=== PATIENT | male | born 1995 | race Caucasian/White ===

== ENCOUNTER 2018-03-24 03:15 | Emergency (ER) | payer MEDICAID ==
[~2018-03-24] VITALS: Ht 165.1 cm; Wt 68.0 kg
--- NOTE | 2018-03-24 03:27 | NUR ---
PT TO ER BED 12. BIB SELF; "IM NOT FEELING WELL, IM HEARING VOICES". PT PLACED ON STEREOTYPER APPRENTICE. VSS/RESP EVEN UNLABORED/NAD NOTED/SKIN WARM AND DRY/AFEBRILE/DENIES N-V-D/AOX4. AWAITNG MD KOCH.
--- NOTE | 2018-03-24 03:30 | NUR ---
URINE SPECIMEN OBTAINED AND SENT TO THE LAB.
--- NOTE | 2018-03-24 03:40 | NUR ---
LAB AT BEDSIDE FOR DRAW.
[2018-03-24 03:51] LABS: BASOPHILS % (AUTO) 0.3 % (0.0-2.0); HEMATOCRIT 46 % (39-51); HEMOGLOBIN 14.6 g/dL (13.5-17.5); LYMPHOCYTES # (AUTO) 2.8 /CMM (0.8-4.8); LYMPHOCYTES % (AUTO) 27.9 % (20.0-44.0); MEAN CORPUSCULAR HEMOGLOBIN 27 PG (26.0-33.0); MEAN CORPUSCULAR HGB CONC 32 g/dl (31.0-36.0); MEAN CORPUSCULAR VOLUME 85 fL (80-96); MONOCYTES # (AUTO) 0.6 /CMM (0.1-1.30); MONOCYTES % (AUTO) 6.2 % (2.0-12.0); NEUTROPHILS # (AUTO) 6.4 /CMM (1.8-8.9); NEUTROPHILS % (AUTO) 64.6 % (43.0-81.0); PLATELET COUNT (AUTO) 357 /CMM (150-450); RED BLOOD CELL COUNT(AUTO) 5.35 MIL/uL (4.5-6.0)
[2018-03-24 03:55] LABS: APPEARANCE,URINE CLEAR (CLEAR); BILIRUBIN,URINE NEGATIVE (NEGATIVE); BLOOD, URINE NEGATIVE Ery/uL (NEGATIVE); COLOR,URINE YELLOW (YELLOW); KETONES,URINE NEGATIVE (NEGATIVE); LEUKOCYTE ESTERASE ,URINE NEGATIVE (NEGATIVE); NITRITE, URINE NEGATIVE (NEGATIVE); PROTEIN,URINE NEGATIVE (NEGATIVE); UGLUCOSE NEGATIVE (NEGATIVE); UROBILINOGEN,URINE 0.2 EU/dL (0.2)
[2018-03-24 04:10] LABS: ALANINE AMINOTRANSFERASE 20 U/L (12-78); ALBUMIN 4.1 g/dL (3.4-5.0); ALCOHOL, BLOOD < 3 mg/dL (0-0); ALKALINE PHOSPHATASE 78 U/L (46-116); ASPARTATE AMINOTRANSFERASE 18 U/L (15-37); BILIRUBIN,DIRECT 0.1 mg/dL (0.0-0.2); BILIRUBIN,TOTAL 0.4 mg/dL (0.2-1.0); CARBON DIOXIDE 32 mmol/L (21-32); CHLORIDE 104 mmol/L (98-107); GLUCOSE 95 mg/dL (74-106); POTASSIUM 3.9 mmol/L (3.5-5.1); SODIUM SERUM 142 mmol/L (136-145); TOTAL PROTEIN, SERUM 7.8 g/dL (6.4-8.2); UREA NITROGEN, BLOOD 8 mg/dL (7-18)
[2018-03-24 04:11] LABS: ACETAMINOPHEN 0 ug/ml (10-30); SALICYLATE 2.4 mg/dL (2.8-20.0)
--- NOTE | 2018-03-24 06:53 | NUR ---
PT RESTING QUIETLY, AROUSES EASILY TO VOICE. VSS/RESP EVEN UNLABORED, RN TO CONTINUE MONITORING PT PROVIDING SAFETY/COMFORT MEASURES.
--- NOTE | 2018-03-24 07:19 | NUR ---
REPORT GIVEN TO GINA ABRAHAM FOR REX.
--- NOTE | 2018-03-24 08:08 | NUR ---
Paged Se[facility] for PET evert [place] 1hr.
--- NOTE | 2018-03-24 08:23 | NUR ---
DR MONTALVO AT BEDSIDE TALKING TO PT. PT STATES HE NEEDS TO GO HOME NOW. DENIES SI/HI. D/C HOME IN STABLE CONDITION.
[2018-03-24 08:30] VITALS: BP 115/66
== END 2018-03-24 08:32 | disposition home or self-care (01) ==
LOC: ER 03:19
DX: R44.0 Auditory hallucinations (principal); J45.909 Unspecified asthma, uncomplicated; F17.200 Nicotine dependence, unspecified, uncomplicated; F31.9 Bipolar disorder, unspecified; Z59.0 Homelessness
CPT/HCPCS: 36415; 80048-TC; 80076-TC; 80305; 81000-TC; 85025-TC; A4606; G0480; Z7610

== ENCOUNTER 2020-05-06 17:30 | Emergency (ER) | payer SELFPAY ==
[~2020-05-06] VITALS: Ht 165.1 cm; Wt 60.8 kg
[2020-05-06 18:18] LABS: APPEARANCE,URINE Slightly Cloudy (CLEAR); BILIRUBIN,URINE SMALL (NEGATIVE); BLOOD, URINE Negative Ery/uL (NEGATIVE); COLOR,URINE Dark (YELLOW); KETONES,URINE Negative (NEGATIVE); LEUKOCYTE ESTERASE ,URINE Negative (NEGATIVE); NITRITE, URINE Negative (NEGATIVE); PROTEIN,URINE 30 mg/dl (NEGATIVE); UGLUCOSE Negative (NEGATIVE); UROBILINOGEN,URINE 0.2 EU/dL (0.2)
--- NOTE | 2020-05-06 18:19 | NUR ---
BIBS FROM STREET TO ER BED 14. AAOX4. NOT IN RESP DISTRESS. AMBULATORY. CAME IN FOR PARANOIA AND REQUESTING FOR VOLUNTARY ADMISSION FOR MENTAL HEALTH. 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 PT DENIES BEING SUICIDAL NOR HOMICIDAL. TIFFANIE CASTILLO WAS AT THE BEDSIDE FOR EVAL. ORDERS RECEIVED NOTED AND CARRIED OUT.
[2020-05-06] MEDS ORDERED: OLANZAPINE 5 MG TABLET ONE (18:30)
[2020-05-06] MEDS: OLANZAPINE 5 MG TABLET PO ONE (18:33)
[2020-05-06 18:41] LABS: BACTERIA,URINE Few /HPF (None Seen); RBC,URINE 0-2 /HPF (0-2); SQUAMOUS EPITHELIAL CELL,UR Few /HPF (None Seen); WBC,URINE 0-2 /HPF (0-3)
[2020-05-06 18:42] LABS: MUCUS,URINE Moderate /LPF (None Seen)
[2020-05-06 19:50] LABS: BASOPHILS # (AUTO) 0.1 /CMM (0.0-0.2); BASOPHILS % (AUTO) 0.8 % (0.0-2.0); EOSINOPHILS % (AUTO) 0.4 % (0.0-6.0); HEMATOCRIT 46 % (39-51); LYMPHOCYTES # (AUTO) 2.3 /CMM (0.8-4.8); LYMPHOCYTES % (AUTO) 20.1 % (20.0-44.0); MEAN CORPUSCULAR HGB CONC 32 g/dl (31.0-36.0); MEAN CORPUSCULAR VOLUME 84 fL (80-96); MONOCYTES # (AUTO) 0.9 /CMM (0.1-1.30); MONOCYTES % (AUTO) 7.8 % (2.0-12.0); NEUTROPHILS # (AUTO) 8.1 /CMM (1.8-8.9); NEUTROPHILS % (AUTO) 70.9 % (43.0-81.0); PLATELET COUNT (AUTO) 398 /CMM (150-450); RED BLOOD CELL COUNT(AUTO) 5.49 MIL/uL (4.5-6.0); WHITE BLOOD COUNT (AUTO) 11.5 K/uL (4.3-11.0)
[2020-05-06 20:01] LABS: CALCIUM, SERUM 10.1 mg/dL (8.5-10.1); CARBON DIOXIDE 30 mmol/L (21-32); CHLORIDE 100 mmol/L (98-107); GLUCOSE 101 mg/dL (74-106); POTASSIUM 3.9 mmol/L (3.5-5.1); SODIUM SERUM 139 mmol/L (136-145); UREA NITROGEN, BLOOD 15 mg/dL (7-18)
[2020-05-06 20:06] LABS: ALANINE AMINOTRANSFERASE 27 U/L (12-78); ALBUMIN 4.6 g/dL (3.4-5.0); ALCOHOL, BLOOD < 3 mg/dL (0-0); ALKALINE PHOSPHATASE 93 U/L (46-116); ASPARTATE AMINOTRANSFERASE 33 U/L (15-37); BILIRUBIN,DIRECT 0.2 mg/dL (0.0-0.2); TOTAL PROTEIN, SERUM 9.1 g/dL (6.4-8.2)
[2020-05-06 20:07] LABS: SALICYLATE < 0.2 mg/dL (2.8-20.0)
[2020-05-06 20:08] LABS: ACETAMINOPHEN < 2 ug/ml (10-30)
--- NOTE | 2020-05-06 23:24 | NUR ---
PT ON BED SITTING CALM AND NOTED IN ANY DISTRESS.
--- NOTE | 2020-05-06 23:40 | NUR ---
PT WAS ASK ONCE AGAIN IF HE HAS THOUGHTS OF HURTUING HIMSELF NOR OTHERS, PT DENIED
--- NOTE | 2020-05-06 23:51 | NUR ---
Patient discharged to home in stable condition. Written and verbal after care instructions given. Patient verbalizes understanding of instruction. Pt ambulatory with a steady gait. homeless waiver signed by the pt, provided with food, provided tap card and shirt. Pt states that he wants to go to his gransdmother.
[2020-05-06 23:52] VITALS: BP 128/72
== END 2020-05-06 23:53 | disposition home or self-care (01) ==
LOC: ER 17:33
DX: F15.10 Other stimulant abuse, uncomplicated (principal); F17.200 Nicotine dependence, unspecified, uncomplicated; F12.90 Cannabis use, unspecified, uncomplicated; F31.9 Bipolar disorder, unspecified; J45.909 Unspecified asthma, uncomplicated; Z59.0 Homelessness
CPT/HCPCS: 36415; 80048; 80076; 80305; 80307; 80329; 81001; 85025; 99283; 99406; G0480; 81000-TC

== ENCOUNTER 2021-09-18 03:59 | Emergency (ER) | payer MEDICAID, OTHER ==
[~2021-09-18] VITALS: Ht 160 cm; Wt 63.5 kg
[2021-09-18 04:12] VITALS: BP 116/78
--- NOTE | 2021-09-18 04:13 | NUR ---
BIBRA 860 FOR C/O SCROTAL DISCOMFORT DUE TO WALKING AROUND AND BEING IN TOUCH WITH HIS ZIPPER. SKIN INTACT. PT A/OX4. TOLERATING R/A WELL WITH NO SOB.
--- NOTE | 2021-09-18 04:15 | NUR ---
PT SEEN BY DR. LAW PEDROZA
== END 2021-09-18 04:39 | disposition home or self-care (01) ==
LOC: ER 04:01
DX: L30.4 Erythema intertrigo (principal); L30.9 Dermatitis, unspecified; J45.909 Unspecified asthma, uncomplicated; F17.200 Nicotine dependence, unspecified, uncomplicated; Z59.00 Homelessness unspecified